=== PATIENT | female | born 1935 | race Caucasian/White ===

== ENCOUNTER 2020-01-23 13:58 | Emergency (ER) | payer MEDICARE, MEDICAID ==
[~2020-01-23] VITALS: Ht 157.5 cm; Wt 59.0 kg
[2020-01-23 14:03] VITALS: BP 90/44
[2020-01-23] MEDS ORDERED: Acetaminophen 500mg (ES) tab PO ONE (14:45)
[2020-01-23] MEDS ORDERED: Morphine Sulfate 2mg/ml Inj(IV/IM USE ONLY) IM ONE (14:45)
--- NOTE | 2020-01-23 15:51 | Diagnostic Imaging Report ---
EXAM: XR Left Shoulder Complete, 2 or More Views CLINICAL HISTORY: PAIN TECHNIQUE: Two or more views of the left shoulder. COMPARISON: None FINDINGS: Bones/joints: No displaced fracture or dislocation identified. Osteopenia. Degenerative changes of the left acromioclavicular joint and glenohumeral joint. Soft tissues: Normal. IMPRESSION: No displaced fracture or dislocation identified.
--- NOTE | 2020-01-23 16:01 | Diagnostic Imaging Report ---
EXAM: XR Left Hip With Pelvis When Performed, 2 or 3 Views CLINICAL HISTORY: PAIN TECHNIQUE: Two or three views of the left hip with pelvis when performed. COMPARISON: None FINDINGS: Bones/joints: Irregular density in the subcapital region of the left femur may represent artifact related to overlying bone shadows, but nondisplaced fracture is not excluded. Osteopenia. Degenerative changes of the hips hardware partially visualized in the lower lumbar spine. Soft tissues: Probable injection granuloma in the left gluteal soft tissues. Other: Presumed phleboliths in the pelvis. IMPRESSION: Irregular density in the subcapital region of the left femur may represent artifact related to overlying bone shadows, but nondisplaced fracture is not excluded. Further evaluation could be performed with CT or MRI if clinically indicated.
[2020-01-23] MEDS ORDERED: ACETAMINOPHEN-1 EAC1 ORAL (17:13)
--- NOTE | 2020-01-23 18:09 | Emergency Room Report ---
History of Present Illness General Chief Complaint: Pain Source: Patient, Medical Record Present Illness HPI 84-year-old female presents for evaluation. Coming from halfway facility. Status post fall left in the last few days. Complaining of left shoulder and left hip pain. Patient also states he has had this pain for many years now. Dull, 7 out of 10, nonradiating. Denies any other injuries. Denies any headache. No other aggravating relieving factors. Denies any other associated symptoms Allergies: Coded Allergies: No Known Allergies (Unverified , 01/23/20) COVID-19 Screening Contact w/high risk pt: No Recent Travel to affected area: No Experienced COVID-19 symptoms?: No COVID-19 Testing performed FOOD SCIENCE TECHNICIAN: No Patient History Past Medical History: other - neuropathy Past Surgical History: none Pertinent Family History: none Social History: Denies: smoking, alcohol use, drug use Now: No Immunizations: UTD Reviewed Nursing Documentation: PMH: Agreed; PSxH: Agreed Nursing Documentation-PMH Past Medical History: No History, Except For Hx Diabetes: Yes - neuropathy, osteoarthritis, hypothyroidism Review of Systems All Other Systems: negative except mentioned in HPI Physical Exam Vital Signs Date Time Temp Pulse Resp B/P (MAP) Pulse Ox O2 Delivery O2 Flow Rate FiO2 01/23/20 13:59 98.1 78 18 90/44 (59) 93 Room Air Sp02 EP Interpretation: reviewed, normal General Appearance: no apparent distress, alert, GCS 15, non-toxic Head: normocephalic Eyes: bilateral eye normal inspection, bilateral eye PERRL ENT: normal ENT inspection Neck: normal inspection Respiratory: normal inspection Cardiovascular #1: normal inspection Gastrointestinal: normal inspection Rectal: deferred Genitourinary: no CVA tenderness Musculoskeletal: normal range of motion, tender - Shoulder, left hip Neurologic: alert, motor strength/tone normal, oriented x3, sensory intact, responsive, speech normal Psychiatric: normal inspection Skin: no rash Lymphatic: normal inspection Medical Decision Making Diagnostic Impression: Primary Impression: Contusion, hip Qualified Codes: S70.02XA - Contusion of left hip, initial encounter Additional Impression: Fall Qualified Codes: W19.XXXA - Unspecified fall, initial encounter ER Course Hospital Course 84-year-old female presents with left shoulder and left hip pain status post fall Differential diagnoses include: Fracture, dislocation, sprain, contusion Clinical course Patient placed on stretcher. After initial history and physical, I ordered pain medications and Xrays of left shoulder and left hip Xrays read shows no acute fracture/dislocation. Discussed findings with PMD Dr. Fink. agreed that patient can be safely discharged back to halfway facility Diagnosis -contusion, fall Stable and discharged to SNF. apply ice. weight bear as tolerated. Followup with PMD. Return to ED if symptoms recur or worsen Other X-Ray Diagnostic Results Other X-Ray Diagnostic Results #1: X-Ray ordered: Left shoulder # of Views/Limited Vs Complete: 3 View Indication: Pain EP Interpretation: Yes Interpretation: no dislocation, no soft tissue swelling, no fractures Impression: No acute disease Electronically Signed by: Electronically signed by Shiraz Falk MD Other X-Ray Diagnostic Results #2: X-Ray ordered: Left hip # of Views/Limited Vs Complete: 3 View Indication: Pain EP Interpretation: Yes Interpretation: no dislocation, no soft tissue swelling, no fractures Impression: No acute disease Electronically Signed by: Electronically signed by Shiraz Falk MD Last Vital Signs Date Time Temp Pulse Resp B/P (MAP) Pulse Ox O2 Delivery O2 Flow Rate FiO2 01/23/20 16:50 98.1 01/23/20 14:03 87 18 90/44 93 Room Air Status: improved Disposition: HOME, SELF-CARE Condition: Stable Scripts Acetaminophen With Codeine (T#3) (TYLENOL #3 TAB*) Y Tab 1 TAB ORAL Q8H PRN for For Pain, #20 TAB Prov: Shiraz Falk MD 01/23/20 Patient Instructions: Contusion-SportsMed Shiraz Falk MD Jan 23, 2020 18:08
[2020-01-23 19:55] VITALS: BP 98/45
== END 2020-01-23 19:55 | disposition home or self-care (01) ==
LOC: EDBD 13:58 → EMR 15:11
DX: S70.02XA Contusion of left hip, initial encounter (principal); M25.512 Pain in left shoulder; W19.XXXA Unspecified fall, initial encounter; Y92.9 Unspecified place or not applicable; E03.9 Hypothyroidism, unspecified; M19.90 Unspecified osteoarthritis, unspecified site; G62.9 Polyneuropathy, unspecified
CPT/HCPCS: 73030; 73502; 96372; 99284; J2270

== ENCOUNTER 2020-04-26 18:28 | Emergency (ER) | payer MEDICARE, MEDICAID ==
[~2020-04-26] VITALS: Ht 154.9 cm; Wt 72.6 kg
[~2020-04-26 18:28] MED LIST: ACETAMINOPHEN-1 EAC1 ORAL
--- NOTE | 2020-04-26 18:33 | NUR ---
ED Nurse Note: Pt brought in by anders from [facility] d/t unwitnessed fall today around 1500. Pt is AOx1-2; has hx of dementia; pt complains of LT shoulder/back pain, RT ear lac, per pt, she hit her head on the ground by denies loss of consciouness. Pt's VSS, on RA, afebrile on triage, pt does not take any blood thinners per EMS. Safety measures in placed, will cont monitoring pt.
[2020-04-26 18:38] VITALS: BP 153/83
[2020-04-26] MEDS ORDERED: Tetanus/Diptheria/Pertussis IM ONE (18:45)
[2020-04-26] MEDS ORDERED: Acetaminophen 500mg (ES) tab ORAL ONE (18:45)
--- NOTE | 2020-04-26 18:50 | NUR ---
ED Nurse Note: Pt taken to CT.
--- NOTE | 2020-04-26 19:13 | NUR ---
ED Nurse Note: Report given to MAGALIE Jimenez.
--- NOTE | 2020-04-26 19:15 | Diagnostic Imaging Report ---
EXAM: CT Head Without Intravenous Contrast CLINICAL HISTORY: FALL TECHNIQUE: Axial computed tomography images of the head/brain without intravenous contrast. CTDI is 53.4 mGy and DLP is 979.6 mGy-cm. One or more of the following dose reduction techniques were used: automated exposure control, adjustment of the mA and/or kV according to patient size, use of iterative reconstruction technique. COMPARISON: No relevant prior studies available. FINDINGS: Brain: No hemorrhage. No edema. Involutional changes with small vessel disease. Ventricles: No ventriculomegaly. Bones/joints: No acute fracture. Soft tissues: Right periauricular soft tissue swelling Sinuses: No acute sinusitis. Mastoid air cells: No mastoid effusion. Cataract surgery. IMPRESSION: No acute intracranial process.
[2020-04-26] MEDS ORDERED: Lidocaine 1% Plain 30 ml INJ ONE (19:30)
--- NOTE | 2020-04-26 19:30 | NUR ---
ED Nurse Note: Recieved report from am nurse to resume care, pt just returned from imaging and provider at bedside for sutures to lac behind right ear, pt is on gurmarquez awake, alert and calm, will resume care when MD completed.
--- NOTE | 2020-04-26 19:37 | Diagnostic Imaging Report ---
EXAM: CT Maxillofacial Without Intravenous Contrast CLINICAL HISTORY: FALL TECHNIQUE: Axial computed tomography images of the face without intravenous contrast. CTDI is 15.3 mGy and DLP is 315.5 mGy-cm. One or more of the following dose reduction techniques were used: automated exposure control, adjustment of the mA and/or kV according to patient size, use of iterative reconstruction technique. COMPARISON: No relevant prior studies available. FINDINGS: Bones/joints: No acute fracture. Soft tissues: Right periauricular soft tissue injury. Orbits: Cataract surgery. Sinuses: No acute sinusitis. Dental: Periapical lucency/abscess related to the right lower central incisor. Some erosion in the alveolar ridge as well. IMPRESSION: No acute fracture.
[2020-04-26] MEDS ORDERED: Bacitracin Oint UD TOPIC ONE (19:45)
[2020-04-26 20:20] VITALS: BP 144/86
--- NOTE | 2020-04-26 21:10 | NUR ---
ED Nurse Note: Pt resting in bed, quietly awake and alert, confused and disoriented x 4, pt tolerated sutures well and dressing applied with bacitracin ointment, pt given sandwich and juice with chips, ate all and tolerated well, denies pain, smiles and converses pleasantly, pt has been d/c and waiting for ambulance transport back to snf facility, report for pt called to [facility] and report given to nurse Pickard, will continue to monitor pt while waiting for new transport time.
[2020-04-26 22:50] VITALS: BP 141/76
--- NOTE | 2020-04-26 22:50 | NUR ---
ER DISCHARGE NOTE: Patient is cleared to be discharged per ERMD, pt is awake and alert, on room air, with stable vital signs. pt medical van driver [place] was given dc and prescription instructions, pt id band removed without complications. took all belongings. pt taken by [id number].
[2020-04-26 23:00] VITALS: BP 141/76
--- NOTE | 2020-04-26 23:00 | Emergency Room Report ---
History of Present Illness General Chief Complaint: Multiple Trauma/Fall Source: Patient, Medical Record Present Illness HPI 84-year-old female presents the ED for evaluation. Brought in by EMS from assisted living. Fell from her bed. Has a laceration behind the right ear. Patient at baseline mentation. Pain to right elbow. Dull, 7 out of 10, nonradiating. No other aggravating relieving factors. Denies any other associated symptoms Allergies: Coded Allergies: No Known Allergies (Unverified , 01/23/20) COVID-19 Screening Contact w/high risk pt: No Recent Travel to affected area: No Experienced COVID-19 symptoms?: No COVID-19 Testing performed RECORDS MANAGEMENT SPECIALIST: No Patient History Past Medical History: other - hypothyroidism Past Surgical History: none Pertinent Family History: none Social History: Denies: smoking, alcohol use, drug use Now: No Immunizations: UTD Reviewed Nursing Documentation: PMH: Agreed; PSxH: Agreed Nursing Documentation-PMH Hx Diabetes: Yes - neuropathy, osteoarthritis, hypothyroidism Review of Systems All Other Systems: negative except mentioned in HPI Physical Exam Vital Signs Date Time Temp Pulse Resp B/P (MAP) Pulse Ox O2 Delivery O2 Flow Rate FiO2 04/26/20 18:29 98.2 18 19 153/83 (106) 95 Room Air Sp02 EP Interpretation: reviewed, normal General Appearance: no apparent distress, alert, GCS 15, non-toxic Head: normocephalic, atraumatic Eyes: bilateral eye normal inspection, bilateral eye PERRL ENT: hearing grossly normal, normal pharynx, no angioedema, normal voice, other - 2cm laceration to posterior aspect R ear. no active bleeding Neck: full range of motion, supple/symm/no masses Respiratory: chest non-tender, lungs clear, normal breath sounds, speaking full sentences Cardiovascular #1: regular rate, rhythm, no edema Cardiovascular #2: 2+ carotid (R), 2+ carotid (L), 2+ radial (R), 2+ radial (L), 2+ dorsalis pedis (R), 2+ dorsalis pedis (L) Gastrointestinal: normal bowel sounds, non tender, soft, non-distended, no guarding, no rebound Rectal: deferred Genitourinary: normal inspection, no CVA tenderness Musculoskeletal: back normal, normal range of motion, gait/station normal, tender - L shoulder, L elbow Neurologic: alert, motor strength/tone normal, oriented x3, sensory intact, responsive, speech normal Psychiatric: judgement/insight normal, memory normal, mood/affect normal, no suicidal/homicidal ideation Reflexes: 3+ bicep (R), 3+ bicep (L), 3+ tricep (R), 3+ tricep (L), 3+ knee (R), 3+ knee (L) Lymphatic: no adenopathy Procedures Splinting Splinting : Consent: Verbal Pre-Made Type: sling Pre-Proc Neuro Vasc Exam: normal Post-Proc Neuro Vasc Exam: normal Patient Tolerated: Well Complications: None Laceration/Wound Repair Laceration/Wound Repair : Consent: Verbal Wound Location: other - R ear posterior aspect Wound's Depth, Shape: linear Wound Explored: clean Betadine Prep?: Yes Anesthesia: 1% Lidocaine Wound Debrided: minimal Wound Repaired With: sutures Suture Size/Type: 4:0, proline Layer Closure?: No Sterile Dressing Applied?: Yes Splint Applied?: No Sling Applied?: No Patient Tolerated: Well Complications: None Medical Decision Making Diagnostic Impression: Primary Impression: Laceration of ear Qualified Codes: S01.311A - Laceration without foreign body of right ear, initial encounter Additional Impression: Fall Qualified Codes: W19.XXXA - Unspecified fall, initial encounter ER Course Hospital Course 84-year-old female presents with left shoulder pain laceration behind right ear status post fall from bed Clinical course Patient placed on stretcher. After initial history and physical I ordered tetanus shot. CT head facial bone and shoulder and elbow x-rays on left. ET head facial bones, x-rays all unremarkable anesthesia provided with lidocaine. Laceration repaired w/o complication. Dressing applied. patient shoulder sling. Discussed with PMD. Agreed to safely discharged back to facility Diagnosis - laceration of ear, fall Stable and discharged to assisted living. wound Care instructions given. Followup with PMD in 7-10 days for suture removal. Return to ED if any signs of infection develop Other X-Ray Diagnostic Results Other X-Ray Diagnostic Results #1: X-Ray ordered: Trena guerrero # of Views/Limited Vs Complete: 3 View Indication: Pain EP Interpretation: Yes Interpretation: no dislocation, no soft tissue swelling, no fractures Impression: No acute disease Electronically Signed by: Electronically signed by Shiraz Falk MD Other X-Ray Diagnostic Results #2: X-Ray ordered: L elbow # of Views/Limited Vs Complete: 3 View Indication: Pain EP Interpretation: Yes Interpretation: no dislocation, no soft tissue swelling, no fractures Impression: No acute disease Electronically Signed by: Electronically signed by Shiraz Falk MD CT/MRI/US Diagnostic Results CT/MRI/US Diagnostic Results #1: Imaging Test Ordered: CT Head Impression Procedure: CT Head no Contrast EXAM: CT Head Without Intravenous Contrast CLINICAL HISTORY: FALL TECHNIQUE: Axial computed tomography images of the head/brain without intravenous contrast. CTDI is 53.4 mGy and DLP is 979.6 mGy-cm. One or more of the following dose reduction techniques were used: automated exposure control, adjustment of the mA and/or kV according to patient size, use of iterative reconstruction technique. COMPARISON: No relevant prior studies available. FINDINGS: Brain: No hemorrhage. No edema. Involutional changes with small vessel disease. Ventricles: No ventriculomegaly. Bones/joints: No acute fracture. Soft tissues: Right periauricular soft tissue swelling Sinuses: No acute sinusitis. Mastoid air cells: No mastoid effusion. Cataract surgery. IMPRESSION: No acute intracranial process. CT/MRI/US Diagnostic Results #2: Imaging Test Ordered: CT Facial Impression Procedure: CT Maxillofacial no Contrast EXAM: CT Maxillofacial Without Intravenous Contrast CLINICAL HISTORY: FALL TECHNIQUE: Axial computed tomography images of the face without intravenous contrast. CTDI is 15.3 mGy and DLP is 315.5 mGy-cm. One or more of the following dose reduction techniques were used: automated exposure control, adjustment of the mA and/or kV according to patient size, use of iterative reconstruction technique. COMPARISON: No relevant prior studies available. FINDINGS: Bones/joints: No acute fracture. Soft tissues: Right periauricular soft tissue injury. Orbits: Cataract surgery. Sinuses: No acute sinusitis. Dental: Periapical lucency/abscess related to the right lower central incisor. Some erosion in the alveolar ridge as well. IMPRESSION: No acute fracture. Last Vital Signs Date Time Temp Pulse Resp B/P (MAP) Pulse Ox O2 Delivery O2 Flow Rate FiO2 04/26/20 19:20 98.2 04/26/20 18:38 19 153/83 95 Room Air 9/22/20 18:38 18 Status: improved Disposition: ASSISTED LIVING Condition: Stable Patient Instructions: Head Injury, Adult, [id number], Laceration Care, Adult, [id number] Additional Instructions: have sutures removed in 7 days Shiraz Falk MD Apr 26, 2020 23:00
--- NOTE | 2020-04-27 10:47 | Diagnostic Imaging Report ---
EXAM: X-RAY XRAY Elbow Min 3v L CLINICAL HISTORY: Trauma with elbow pain. COMPARISON: None FINDINGS: Total of 3 views of the left elbow were obtained. Alignment is anatomic. There is no fracture, bony lesions or erosions. Degenerative proliferative changes noted at the epicondyles. No joint effusion noted. Surrounding soft tissue is normal. IMPRESSION: MILD DEGENERATIVE CHANGES. NO FRACTURE OR MALALIGNMENT.
--- NOTE | 2020-04-27 10:50 | Diagnostic Imaging Report ---
EXAM: X-RAY XRAY Shoulder Compl L CLINICAL HISTORY: Trauma with shoulder pain. COMPARISON: None FINDINGS: Total of 3 views of the left shoulder were obtained. Alignment is anatomic. There is no fracture, bony lesions or erosions. Degenerative changes of the AC joint noted. There is also some productive changes at the greater tuberosity. Surrounding soft tissue is normal. IMPRESSION: NO ACUTE FRACTURE OR MALALIGNMENT. DEGENERATIVE CHANGES.
== END 2020-04-26 23:00 | disposition home or self-care (01) ==
LOC: EDBD 18:28 → EDUNIT# 18:28 → EMR 19:28
DX: S01.311A Laceration without foreign body of right ear, initial encounter (principal); Z23 Encounter for immunization; W06.XXXA Fall from bed, initial encounter; Y92.099 Unspecified place in other non-institutional residence as the place of occurrence of the external cause; E03.9 Hypothyroidism, unspecified; M19.90 Unspecified osteoarthritis, unspecified site; G62.9 Polyneuropathy, unspecified; M25.521 Pain in right elbow; M25.512 Pain in left shoulder; M25.522 Pain in left elbow
CPT/HCPCS: 12011; 70450; 70486; 73030; 73080; 90471; 90715; 99284; J2001

== ENCOUNTER 2020-05-18 21:09 | Emergency (ER) | payer MEDICARE, MEDICAID ==
[~2020-05-18] VITALS: Ht 162.6 cm; Wt 63.5 kg
[2020-05-18 21:25] VITALS: BP 154/80
--- NOTE | 2020-05-18 21:25 | NUR ---
ED Nurse Note: Patient brought into ED from SNF by [id number] for c/o laceration s/p fall today. Per EMS, pt was found in her bed with a laceration to her R eyebrow area. Pt denies any body, neck or back pain, but has localized pain to the area of the laceration. No LOC noted per EMS. [facility] notes pt is acting appropriately for baseline and is able to answer questions. Fall was unwitnessed. She is breathing normal and unlabored. No acute distress noted. Pt in bed with safety measures met; will cont. to monitor. Pt has hx of falls, last fall 1 month ago.
[2020-05-18] MEDS ORDERED: Lidocaine 1% MPF 10mg/ml 5ml IM ONE (22:00)
--- NOTE | 2020-05-18 22:05 | Diagnostic Imaging Report ---
EXAM: CT Head Without Intravenous Contrast CLINICAL HISTORY: TRAUMA TECHNIQUE: Axial computed tomography images of the head/brain without intravenous contrast. CTDI is 53.4 mGy and DLP is 1072.2 mGy-cm. One or more of the following dose reduction techniques were used: automated exposure control, adjustment of the mA and/or kV according to patient size, use of iterative reconstruction technique. COMPARISON: 04/26/[address] FINDINGS: Brain: No hemorrhage. Stable ventricular small vessel ischemic changes. No edema. Ventricles: No acute ventriculomegaly. Bones/joints: No acute fracture. Soft tissues: Right frontal scalp and zygomatic process scalp hematoma/contusion with subcutaneous gas. Sinuses: Unremarkable as visualized. No acute sinusitis. Mastoid air cells: No mastoid effusion. IMPRESSION: 1. No acute intracranial traumatic process. 2. No acute fractures. 3. Right frontal scalp and zygomatic process scalp hematoma/contusion.
[2020-05-18] MEDS ORDERED: MECLIZINE HCL25 MG ORAL (22:07)
[2020-05-18] MEDS ORDERED: VISINE ALLERGY15 ML OP (22:07)
[2020-05-18] MEDS ORDERED: FISH OIL CAP1000 MG ORAL (22:07)
[2020-05-18] MEDS ORDERED: GABAPENTIN100 MG ORAL (22:07)
[2020-05-18] MEDS ORDERED: DOCUSATE SODIU100 MG ORAL (22:07)
[2020-05-18] MEDS ORDERED: NOVOLOG100 UNITS1 SUBQ (22:07)
[2020-05-18] MEDS ORDERED: METFORMIN HCL500 M1 ORAL (22:07)
[2020-05-18] MEDS ORDERED: LEVOTHYROXINE125 MCG ORAL (22:07)
[2020-05-18] MEDS ORDERED: JANUVIA25 MG ORAL (22:07)
[2020-05-18] MEDS ORDERED: DAILY VITE1 EACH ORAL (22:07)
[2020-05-18] MEDS ORDERED: TRAMADOL HCL50 MG ORAL (22:07)
[2020-05-18] MEDS ORDERED: DICLOFENAC SOD100 GM TP (22:07)
[2020-05-18] MEDS ORDERED: QUETIAPINE FUMA50 MG ORAL (22:07)
[2020-05-18] MEDS ORDERED: LISINOPRIL5 MG ORAL (22:07)
--- NOTE | 2020-05-18 22:15 | NUR ---
ED Nurse Note: ERMD bedside for laceration repair. Patient tolerated well; no complications.
--- NOTE | 2020-05-18 22:35 | NUR ---
ED Nurse Note: Spoke with caregiver Jacquie at assisted living facility. Told her that pt will be returning to facility.
--- NOTE | 2020-05-18 22:57 | Emergency Room Report ---
History of Present Illness General Chief Complaint: Multiple Trauma/Fall Source: Medical Record Present Illness HPI Disclaimer: Please note that this report is being documented using DRAGON technology. This can lead to erroneous entry secondary to incorrect interpretation by the dictating instrument. HPI: 84-year-old female history of dementia, hypertension, DNR presented after a fall from bed. She was found in her room, initially reports falling while getting out of bed. Sustained laceration to the right eyebrow. Patient denies any neck or back pain. Visited by EMS. Currently lives in an assisted living. 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 Patient History Reviewed Nursing Documentation: PMH: Agreed; PSxH: Agreed Nursing Documentation-PMH Hx Diabetes: Yes - neuropathy, osteoarthritis, hypothyroidism Review of Systems All Other Systems: negative except mentioned in HPI Physical Exam Vital Signs Date Time Temp Pulse Resp B/P (MAP) Pulse Ox O2 Delivery O2 Flow Rate FiO2 05/18/20 21:11 98.8 98 18 154/80 (104) 99 Room Air Sp02 EP Interpretation: reviewed, normal General Appearance: well appearing, no apparent distress Head: normocephalic, other - Stellate laceration over right eyebrow noted, no depressions Eyes: bilateral eye PERRL, bilateral eye EOMI ENT: hearing grossly normal, moist mucus membranes Neck: full range of motion, supple, other - No midline tenderness Respiratory: lungs clear, normal breath sounds, no rhonchi, no respiratory dist ress, no retraction, no wheezing Cardiovascular #1: normal peripheral pulses, regular rate, rhythm, no murmur Gastrointestinal: non tender, soft, non-distended, no guarding Musculoskeletal: other - No midline tenderness of the spine step-off or deformity Neurologic: alert, no focal defects, other - Alert and oriented to name and place Skin: normal color, warm/dry Procedures Laceration/Wound Repair Laceration/Wound Repair : Consent: Verbal Wound Location: head Wound's Depth, Shape: superficial Wound Explored: clean Anesthesia: 1% Lidocaine Wound Debrided: None Wound Repaired With: sutures Suture Size/Type: 5:0 Sterile Dressing Applied?: Yes Patient Tolerated: Well Complications: None Medical Decision Making Diagnostic Impression: Primary Impression: Head injury Additional Impression: Laceration of face ER Course Patient presented after a fall from bed. She sustained a laceration to the face. Laceration closed by me. CT scan of the brain ordered that showed no acute hemorrhage or skull fracture. Low suspicion for serious traumatic injury. Patient will be discharged back to her assisted living. Will return in 1 week for suture removal. Return sooner for any worsening symptoms or concerns. CT/MRI/US Diagnostic Results CT/MRI/US Diagnostic Results : Imaging Test Ordered: CT brain Impression IMPRESSION: 1. No acute intracranial traumatic process. 2. No acute fractures. 3. Right frontal scalp and zygomatic process scalp hematoma/contusion. Last Vital Signs Date Time Temp Pulse Resp B/P (MAP) Pulse Ox O2 Delivery O2 Flow Rate FiO2 05/18/20 21:25 98 18 Room Air 05/18/20 21:25 98.8 154/80 99 Status: improved Disposition: HOME, SELF-CARE Condition: Improved Patient Instructions: Head Injury, Adult, Laceration Care, Adult, [id number] Additional Instructions: Please return in 1 week for suture removal. Patient is instructed to follow-up with her primary care doctor, primary care clinic or [facility] in 1 to 2 days. Patient instructed to return for any worsening symptoms or concerns. Dayton Link M.D. May 18, 2020 22:57
[2020-05-18 23:00] VITALS: BP 125/49
--- NOTE | 2020-05-18 23:00 | NUR ---
ED Nurse Note: Patient is stable for transfer back to assisted living facility at this time. Patient being transported by [facility] BLS unit [id number]. Patient vital signs are stable and she is breathing normal at time of ED departure. Patient took all belongings with her.
== END 2020-05-18 23:00 | disposition home or self-care (01) ==
LOC: EDBD 21:09 → EMR 21:45
DX: S01.111A Laceration without foreign body of right eyelid and periocular area, initial encounter (principal); S00.03XA Contusion of scalp, initial encounter; F03.90 Unspecified dementia, unspecified severity, without behavioral disturbance, psychotic disturbance, mood disturbance, and anxiety; I10 Essential (primary) hypertension; Z66 Do not resuscitate; W06.XXXA Fall from bed, initial encounter; Y92.9 Unspecified place or not applicable; E03.9 Hypothyroidism, unspecified; M19.90 Unspecified osteoarthritis, unspecified site; G62.9 Polyneuropathy, unspecified
CPT/HCPCS: 70450; 99284